=== PATIENT | female | born 1985 | race Two or more races ===

== ENCOUNTER 2019-02-23 15:00 | Outpatient (AMBR) | payer MEDICAID, SELFPAY ==
--- NOTE | 2019-02-19 10:16 | PTNOTE_ITS ---
PT OP Initial Eval Patient Information Visit Reasons: right knee pain Medical Diagnosis: M25.561 Treatment Dx #1: Right Knee Pain Start of Care: 02/19/19 Initial Assessment Subjective Pt is a 33 y/o female c/o right knee pain (6/10) started after she was doing zoomba jumped and heard a pop in the knee. Pt's recent MRI found a torn medial meniscus. Pt currently has difficulty with walking, chores, standing, self care, gym activities, and squatting motions. Objective Right Knee AROM: 0 deg to 130 deg with end range flexion pain Right Knee MMTs Quads: 4-/5 Hs: 4-/5 Right Hip MMTs Glute Med: 3/5 Glute Max: 3/5 Special Test (+) Thessaly Palpation: TTP medial joint line Assessment Pt demonstrate right knee pain with mobility deficits leading to decline function. Pt will benefit from physical therapy to increase strength, mobility, and work on LE stability Short Term and Break Out Worker Goals 1) Decrease knee pain to 2/10 in 6 wks to be able to perform squatting activities 2) Increase right knee MMTs to 4/5 in 6 wks to be able to perform gym activities 3) Increase right hip MMTs to 4-/5 in 6 wks to be able to perform chores 4) Indep with HEP Treatment Plan 1) Manual Therapy 2) Therapeutic Activities 3) Therapeutic Exercises 4) Modalities (ice, heat, estim) 5) Balance Training Frequency and Duration 2 x wk for 6 wks Certification Dates: 02/19/19 to 05/21/19 Office Procedures PT Procedures PT Date of Service: 02/19/19 OP PT Eval Mod Complex 30 minutes: Yes
--- NOTE | 2019-02-23 16:18 | PTNOTE_ITS ---
PT Outpatient Daily Note Date of Service: February 23, 2019 OP Daily Note Visit Reasons: right knee pain Outpatient Physical Therapy Treatment Date: 02/23/19 Subjective: Pt. describes having no pain, but she does have a fear of pain with activity. Pt. has MD appt tomorrow to discuss Sx options. Objective: Please refer to flow chart for list of ther ex performed. Assessment: Pt. felt unstable on balance board and had fear of it increasing symptoms. Pt. was apprehensive of taking on ther ex as she feels it may exacer savana her symptoms. Plan: Continue PT per POC. Length of Time (minutes) of Treatment: 30 Minutes Office Procedures PT Procedures PT Date of Service: 02/19/19 OP PT Eval Mod Complex 30 minutes: Yes PT Procedures PT Date of Service: 02/23/19 Therapeutic Exercise 30 minutes: Yes
== END 2019-02-23 23:59 | disposition home or self-care (01) ==
PROVIDERS: PCP Physician Assistant; Referring Provider Physician Assistant; Visit Provider Physician Assistant
DX: M25.561 Pain in right knee (principal); R26.2 Difficulty in walking, not elsewhere classified
CPT/HCPCS: 97110; 97162

== ENCOUNTER 2019-02-26 13:16 | Outpatient (AMBR) | payer MEDICAID, SELFPAY ==
--- NOTE | 2019-02-26 16:10 | PT.ODS1RPT ---
PT OP Progress/Discharge Note Date of Service: February 26, 2019 Progress Note/DC Note Progress Note/Discharge Note: DC Note Patient Information Visit Reasons: right knee Medical Diagnosis: M25.561 Treatment Dx #1: Right Knee Pain Service Continue Service or Discharge: Discharge Discharge Date: 02/26/19 Status Subjective: Pt saw the surgeon yesterday and will need to have surgery (ACL reconstruction). Pt continues to have knee pain (12/03) with limitation with walking, squatting, kneeling, gym activities, and performing normal ADLs. Objective: Right Knee AROM: 0 deg to 130 deg Right Knee MMTs Quads 4-/5 Hs: 4-/5 Right Hip MMTs Glute Med 3/5 Glute MaxL 3/5 Assessment: Pt demonstrate functional strength and mobility, however, continues to have knee pain with activities. Pt will be d/c from physical therapy due to pending knee surgery in a few weeks. Pt did not meet set goals in therapy, thank you for your referrals. Plan: D/C home and follow up with PCP PRN Office Procedures PT Procedures PT Date of Service: 02/26/19 Therapeutic Exercise 30 minutes: Yes
== END 2019-03-26 23:59 | disposition home or self-care (01) ==
PROVIDERS: PCP Physician Assistant; Referring Provider Physician Assistant; Visit Provider Physician Assistant
DX: M25.561 Pain in right knee (principal); R26.2 Difficulty in walking, not elsewhere classified
CPT/HCPCS: 97110

== ENCOUNTER → 2024-12-31 | Outpatient (CLI) | payer MEDICAID, SELFPAY ==
--- NOTE | 2024-12-31 09:30 | XR_ITS ---
Examination: Esophagram standard Upright PA chest single view Upright soft tissue lateral neck single view 22 spot films of the esophagus Fluoroscopy Date and time: December 31, 2024 0951 hours INDICATIONS: Difficulty swallowing several years. TECHNIQUE AND FINDINGS: Upright PA chest demonstrates normal heart size and clear lungs Soft tissue lateral neck demonstrates normal epiglottis Primary peristaltic esophageal waves Mild intermittent gastroesophageal reflux No stricture the gastroesophageal junction No filling defects within the esophagus No esophageal ulcerations IMPRESSION: Mild intermittent gastroesophageal reflux Fluoroscopy 0.18 minutes, 22 spot fluoroscopic films of the esophagus
== END | disposition home or self-care (01) ==
LOC: CDIM 09:43
PROVIDERS: Referring Provider Nurse Practitioner Primary Care; Visit Provider Nurse Practitioner Primary Care
DX: K21.9 Gastro-esophageal reflux disease without esophagitis (principal)
CPT/HCPCS: 74220; A4649

== ENCOUNTER 2025-01-22 14:30 | Outpatient (RCR) | payer MEDICAID, SELFPAY ==
--- NOTE | 2025-01-14 15:09 | PTNOTE_ITS ---
PT OP Initial Eval Patient Information Outpatient Physical Therapy Treatment Date: 01/14/25 Visit Reasons: back pain Medical Diagnosis: M51.369 Treatment Dx #1: LBP Start of Care: 01/14/25 Date of Onset: 2 yrs ago Smoking Status Smoking Status: Never smoker Initial Assessment Subjective: Pt is 39 yr old central [place] speaking female who reports LBP along the beltline x2 yrs. Increased pain with bending fwd, laying on her side and prolonged sitting. It feels like a pressure and the muscles feel weak. PMH: high cholesterol Imaging: Xrays with provider Pt goal: less LBP and for the back to feel strong. Objective: Trunk ArOM: ? B SB 50% of normal with pain to the L ? Extension: 20% with pain around L4-5, L5-S1 ? Flexion: 10 from floor with LBP ? B rotation: 60% ? TTP: moderate paraspinals L5-S1 ? Neuro: L SLR: positive Assessment: ? Pt presents with trunk flexion sensitivity and overlying myofascial pain ? and TTP around L5-S1 consistent with ? lower lumbar disc bulge(s) with radiculopathy. Pt requires skilled therapy in order to decrease ? pain and improve sitting/standing tolerance and has fair rehab potential. Eval ?followed by HEP printout. Short Term and Handy Worker Goals 1. Ind with HEP ? 2. Improved sitting/standing tolerance to 30 minutes with <=4/10 LBP ? 3. Decreased lower paraspinal TTP from mod to min 4. Improved HH chore tolerance to at least 30 minutes with <=3/10 LBP and no ?increase in LE ssx ? Treatment Plan 1. Manual therapy ? 2. Therex ? 3. Modalities as indicated, moist heat, ice, estim, mechanical traction Frequency and Duration: 1-2x a week for 18 visits plus the evaluation Certification Dates: 01/14/25 to 04/14/25 Procedure Charges OP PT Eval Mod Complex 30 minutes: Yes
--- NOTE | 2025-01-18 17:33 | PT.ODAYNRPT ---
PT Outpatient Daily Note OP Daily Note Outpatient Physical Therapy Treatment Date: 01/18/25 Visit Reasons: back pain Subjective: Same as time of evaluation Objective: See F/S for therex Mechanical traction x7' L/S at 40 lbs Assessment: Good response to trunk extension to relieve LBP Plan: Continue per POC Length of Time (minutes) of Treatment: 30 Minutes Procedure Charges Therapeutic Exercise 30 minutes: Yes
--- NOTE | 2025-01-22 15:35 | PT.ODAYNRPT ---
PT Outpatient Daily Note OP Daily Note Outpatient Physical Therapy Treatment Date: 01/22/25 Visit Reasons: back pain Subjective: Pt reports LBP and pain on R side. Objective: Please see flow sheet for ther ex list. Assessment: Pt given updated HEP, pt able to replicate with good technique was given printed hand out. Plan: Continue with POC. Length of Time (minutes) of Treatment: 30 Minutes Procedure Charges Therapeutic Exercise 30 minutes: Yes
== END 2025-01-24 23:59 | disposition home or self-care (01) ==
LOC: CPTX 14:30
PROVIDERS: PCP Nurse Practitioner Primary Care; Referring Provider Nurse Practitioner Primary Care; Visit Provider Nurse Practitioner Primary Care
DX: M51.360 Other intervertebral disc degeneration, lumbar region with discogenic back pain only (principal); M62.81 Muscle weakness (generalized)
CPT/HCPCS: 97110; 97162